=== PATIENT | female | born 1950 | race Hispanic/Latino ===

== ENCOUNTER 2017-06-07 01:18 | Emergency (ER) | payer MEDICARE, MEDICAID ==
[2017-06-07 01:59] LABS: #Basophils 0.1 thou/uL (0.0-0.2); #Eosinphils 0.1 thou/uL (0.0-0.7); #Monocytes 0.5 thou/uL (0.11-0.59); #Neutrophils 5.7 thou/uL (1.40-6.50); %Eosinophils 1.5 % (0.0-10.0); %Lymphocytes 23.7 % (21.0-51.0); %Monocytes 5.8 % (0.0-10.0); Hemoglobin 12.4 g/dL (12.0-16.0); Mean Corpuscular HGB CONC 34.2 g/dL (32.0-36.0); Mean Corpuscular Volume 84.9 fl (81.0-99.0); Mean Platelet Volume 7.6 fL (7.4-10.4); Platelet Count 189 thou/uL (130-400); Red Blood Cell (RBC) Count 4.29 mill/uL (4.20-5.40); White Blood Cell (WBC) Count 8.4 thou/uL (4.8-10.8)
[2017-06-07 02:08] LABS: pH (venous) 7.35 (7.34-7.37)
[2017-06-07 02:09] LABS: Base Excess 1.3 mEq/L (-2 - +2); Bilirubin Negative (Negative); Blood, Urine Trace (Negative); Clarity Slightly Cloudy (Clear); Glucose, Urine (Dipstick) Negative (Negative); Hemoglobin (Hb) 12.4 g/dL (11.7-16.1); Leukocyte Small (Negative); Nitrite Negative (Negative); Protein, Urine (Dipstick) Negative (Neg-Trace); Specific Gravity, Urine 1.015 (1.005-1.030); Urobilinogen 0.2 mg/dL (0.2-1.0); pH, Urine 5.5 (5.0-9.0)
[2017-06-07 02:12] LABS: BHCG - Serum Negative (NEGATIVE); Pregs Control Background? CLEAR/WHITE (CLR/WHITE); Pregs Control Bar Appear? YES (CONTROL BAR)
[2017-06-07 02:16] LABS: Bacteria/HPF 1+ HPF (None Seen); Squamous Epithelial 0-3 HPF (0-3)
[2017-06-07 02:20] LABS: ALT (SGPT) 17 U/L (8-55); AST (SGOT) 19 U/L (5-34); Albumin 3.9 g/dL (3.4-4.8); Alkaline Phosphatase 74 U/L (40-150); Anion Gap 12 mmol/L (10-20); BUN (Urea Nitrogen) 19 mg/dL (9.8-20.1); Bilirubin, Total 0.4 mg/dL (0.2-1.2); Calc. Creatinine Clearance 0 mL/min (70-130); Carbon Dioxide 27 mmol/L (23-31); Chloride 101 mmol/L (98-107); Estimated GFR-MDRD 70; Globulin 4.2 g/dL (2.4-3.5); Glucose 232 mg/dL (80-115); Lipase 10 U/L (8-78); Potassium 4.1 mmol/L (3.5-5.1); Protein, Total 8.1 g/dL (6.0-8.3); Sodium 136 mmol/L (136-145)
[2017-06-07 02:21] LABS: CKMB 1.1 ng/mL (0-6.6); Troponin I Less than 0.010 ng/mL (< 0.028)
[2017-06-07] MEDS ORDERED: Ondansetron ODT 4 MG TAB ONE (03:34)
--- NOTE | 2017-06-07 08:15 | CT ---
PRELIMINARY REPORT/[facility]/EMERGENCY AFTER HOURS PROCEDURE: EXAM: CT Abdomen and Pelvis With Intravenous Contrast CLINICAL HISTORY: 66 years old, female; Pain; Abdominal pain; Generalized; Patient HX: Pt presents to the er for abdom inal pain and vomiting; Started sunday. ; Additional info: Iv contrast only per er md. TECHNIQUE: Axial computed tomography images of the abdomen and pelvis with intravenous contrast. All CT scans a t this facility use one or more dose reduction techniques, viz.: automated exposure control; ma/kV a djustment per patient size (including targeted exams where dose is matched to indication; i.e. head) ; or iterative reconstruction technique. Coronal reformatted images were created and reviewed. CONTRAST: 100 mL of ISOVUE 370 administered intravenously. EXAM DATE/TIME: Exam ordered 06/07/2017 2:27 AM COMPARISON: No relevant prior studies available. FINDINGS: Lower thorax: No acute findings. ABDOMEN: Liver: Hepatic steatosis. Gallbladder and bile ducts: Prior cholecystectomy. No ductal dilation. Pancreas: Unremarkable. No mass. No ductal dilation. Spleen: Unremarkable. No splenomegaly. Adrenals: Unremarkable. No mass. Kidneys and ureters: Unremarkable. No solid mass. No hydronephrosis. Stomach and bowel: Unremarkable. No obstruction. No mucosal thickening. Appendix: Normal appendix. PELVIS: Bladder: 15 cm complex pelvic mass superior to the urinary bladder and essentially contiguous with t he vaginal cuff, compatible with either primary ovarian or primary uterine malignancy. Reproductive: See above. ABDOMEN and PELVIS: Intraperitoneal space: Unremarkable. No free air. No significant fluid collection. Bones/joints: Numerous tiny sclerotic foci in the bones are likely bone islands. Metastases unlikely but not excluded. No acute fracture. No dislocation. Soft tissues: Unremarkable. Vasculature: Unremarkable. No abdominal aortic aneurysm. Lymph nodes: Retroperitoneal lymphadenopathy measuring up to 1.5 cm in short axis should be consider ed metastatic until proven otherwise. IMPRESSION: 1. 15 cm complex pelvic mass superior to the urinary bladder and essentially contiguous with the vag inal cuff, compatible with either primary ovarian or primary uterine malignancy. 2. Retroperitoneal lymphadenopathy measuring up to 1.5 cm in short axis should be considered metasta tic until proven otherwise. Thank you for allowing us to participate in the care of your patient. Dictated and Authenticated by: Rhett Vasquez MD 06/07/2017 2:57 AM Central Time ([place] \T\ [place]) FINAL REPORT EXAM: ABDOMEN CT WITH CONTRAST PELVIC CT WITH CONTRAST: HISTORY: Abdominal pain. Vomiting. COMPARISON: None. TECHNIQUE: An ad and pelvic CT are performed with IV contrast. Enteric contrast was not administered. Coronal reformatted images are submitted for interpretation. FINDINGS: This report is in agreement with the preliminary report by [facility]. There is evidence of a pelvic mass, with evidence for a primary ovarian or uterine malignancy. [facility] consultation is recommended. There is evidence of retroperitoneal lymphadenopathy, as described in the preliminary report by [facility]. Metastases should be considered until proven otherwise. POS: [facility]
== END 2017-06-07 03:36 | disposition home or self-care (01) ==
LOC: BURERS 01:18
DX: C76.3 Malignant neoplasm of pelvis (principal); E11.9 Type 2 diabetes mellitus without complications; E78.5 Hyperlipidemia, unspecified; Z87.891 Personal history of nicotine dependence; Z79.899 Other long term (current) drug therapy; Z79.84 Long term (current) use of oral hypoglycemic drugs
CPT/HCPCS: 36416; 74177; 80053; 81003; 81015; 82553; 82805; 83605; 83690; 84484; 84703; 85025; Q0162

== ENCOUNTER 2017-07-05 17:53 | Emergency (ER) | payer MEDICARE, MEDICAID ==
[2017-07-05 18:34] LABS: Bilirubin Negative (Negative); Blood, Urine Trace (Negative); Clarity Clear (Clear); Glucose, Urine (Dipstick) 100 mg/dL (Negative); Leukocyte Large (Negative); Nitrite Negative (Negative); Protein, Urine (Dipstick) Negative (Neg-Trace); Urobilinogen 0.2 mg/dL (0.2-1.0); pH, Urine 6.5 (5.0-9.0)
[2017-07-05] MEDS ORDERED: Doxycycline Hyclate 100 MG TAB ONE (18:38)
[2017-07-05 18:42] LABS: Bacteria/HPF 1+ HPF (None Seen); Crystals/HPF None Seen HPF (Negative); Hyaline Casts/LPF NONE SEEN LPF (0-3 Hyaline); Other Casts/LPF None Seen LPF (0-3 Hyaline); Oval Fat Bodies/HPF None Seen HPF (None Seen); RBC/HPF 0-3 HPF (0-3); Renal Epithelial None Seen HPF (0-3); Sperm/HPF None Seen HPF (None Seen); Squamous Epithelial None Seen HPF (0-3); Transitional Epithelial NONE SEEN HPF (0-3); Trichomonas/HPF None Seen HPF (None Seen); WBC/HPF 0-3 HPF (0-3); Yeast-All Forms None Seen HPF (None Seen)
== END 2017-07-05 19:46 | disposition home or self-care (01) ==
LOC: BURERS 17:53
DX: T81.4XXA Infection following a procedure, initial encounter (principal); N99.89 Other postprocedural complications and disorders of genitourinary system; E11.9 Type 2 diabetes mellitus without complications; E78.5 Hyperlipidemia, unspecified; Z87.891 Personal history of nicotine dependence; Z79.84 Long term (current) use of oral hypoglycemic drugs; Z79.899 Other long term (current) drug therapy
CPT/HCPCS: 81003; 81015; 99283

== ENCOUNTER 2017-07-15 21:19 | Emergency (ER) | payer MEDICARE, MEDICAID ==
[2017-07-15] MEDS ORDERED: Ondansetron HCl/PF 4 MG/2 ML Vial ONE (21:54)
[2017-07-15 21:59] LABS: #Basophils 0.1 thou/uL (0.0-0.2); #Eosinphils 0.2 thou/uL (0.0-0.7); #Lymphocytes 2.2 thou/uL (1.20-3.40); #Monocytes 0.9 thou/uL (0.11-0.59); #Neutrophils 13.6 thou/uL (1.40-6.50); %Basophils 0.7 % (0.0-1.0); %Eosinophils 1.4 % (0.0-10.0); %Lymphocytes 13.1 % (21.0-51.0); %Monocytes 5.1 % (0.0-10.0); %Neutrophils 79.7 % (42.0-75.0); Hemoglobin 11.2 g/dL (12.0-16.0); Mean Corpuscular HGB CONC 32.7 g/dL (32.0-36.0); Mean Corpuscular Hemoglobin 28.5 pg (27.0-31.0); Mean Corpuscular Volume 87.2 fl (81.0-99.0); Mean Platelet Volume 6.4 fL (7.4-10.4); Platelet Count 467 thou/uL (130-400); RBC Distribution Width 13.3 % (11.5-14.5); Red Blood Cell (RBC) Count 3.92 mill/uL (4.20-5.40); White Blood Cell (WBC) Count 17.1 thou/uL (4.8-10.8)
[2017-07-15 22:12] LABS: ALT (SGPT) 19 U/L (8-55); AST (SGOT) 18 U/L (5-34); Albumin 3.9 g/dL (3.4-4.8); Alkaline Phosphatase 80 U/L (40-150); Anion Gap 18 mmol/L (10-20); BUN (Urea Nitrogen) 25 mg/dL (9.8-20.1); Bilirubin, Total 0.2 mg/dL (0.2-1.2); Calc. Creatinine Clearance 0 mL/min (70-130); Calcium 9.6 mg/dL (7.8-10.44); Carbon Dioxide 25 mmol/L (23-31); Chloride 100 mmol/L (98-107); Estimated GFR-MDRD 49; Globulin 4.3 g/dL (2.4-3.5); Glucose 178 mg/dL (80-115); Lipase 25 U/L (8-78); Potassium 4.3 mmol/L (3.5-5.1); Protein, Total 8.2 g/dL (6.0-8.3); Sodium 139 mmol/L (136-145)
[2017-07-16 00:12] LABS: Bilirubin Negative (Negative); Blood, Urine Negative (Negative); Clarity Clear (Clear); Glucose, Urine (Dipstick) Negative (Negative); Leukocyte Trace (Negative); Nitrite Negative (Negative); Protein, Urine (Dipstick) Negative (Neg-Trace); Urobilinogen 0.2 mg/dL (0.2-1.0)
[2017-07-16 00:19] LABS: Bacteria/HPF Rare-Few HPF (None Seen); RBC/HPF 0-3 HPF (0-3); Squamous Epithelial 0-3 HPF (0-3)
--- NOTE | 2017-07-16 14:52 | CT ---
PRELIMINARY REPORT/[facility]/EMERGENCY AFTER HOURS PROCEDURE: EXAM: CT Abdomen and Pelvis With Intravenous Contrast CLINICAL HISTORY: 66 years old, female; Signs and symptoms; Nausea and other: Diarrhea; Prior surgery; Surgery date: < 1 month; Surgery type: Hysterectomy; Patient HX: Pt presents to the er for diarrhea; Reports diarrhe a and vomiting that started today. Reports complete hysterectomy on the 25 of june. TECHNIQUE: Axial computed tomography images of the abdomen and pelvis with intravenous contrast. All CT scans a t this facility use one or more dose reduction techniques, viz.: automated exposure control; ma/kV a djustment per patient size (including targeted exams where dose is matched to indication; i.e. head); or iterative reconstruction technique. Coronal reformatted images were created and reviewed. CONTRAST: 100 mL of ISOVUE 370 administered intravenously. COMPARISON: CT Abdomen Pelvis W Con 06/07/2017 2:27:48 AM FINDINGS: Lower thorax: No acute findings. ABDOMEN: Liver: Normal. Gallbladder and bile ducts: Gallbladder surgically absent. Pancreas: Normal. Spleen: Normal. Adrenals: Normal. Kidneys and ureters: Normal. Stomach and bowel: Normal. Appendix: The appendix is normal. PELVIS: Bladder: Normal. Reproductive: Uterus is surgically absent. ABDOMEN and PELVIS: Intraperitoneal space: Normal. No free air. No significant fluid collection. Bones/joints: Multiple sclerotic foci throughout the visualized axial and appendicular skeleton, sim ilar to previous study, possibly bone island versus metastatic disease. Degenerative changes of the hips and sacral iliac joints. Multilevel lumbar spine degenerative changes. No acute fracture. No di slocation. Soft tissues: Small amount of gas and fluid within the ventral abdominal wall, likely secondary to r ecent surgery. No abscess. Vasculature: Minimal atherosclerotic disease of the abdominal aorta. No abdominal aortic aneurysm. Lymph nodes: Several small lymph nodes in the retroperitoneum, likely reactive, but nonspecific, unc hanged. IMPRESSION: 1. No acute abdominal or pelvic abnormality. 2. Multiple sclerotic foci throughout the visualized axial and appendicular skeleton, similar to pre vious study, possibly bone island versus metastatic disease. 3. Incidental/non-acute findings are described above. Thank you for allowing us to participate in the care of your patient. Dictated and Authenticated by: Juanito Perez MD 07/15/2017 11:46 PM Central Time ([place] \T\ [place]) FINAL REPORT CT ABDOMEN AND PELVIS WITH CONTRAST 07/15/2017 Comparison is made with an 06/07/2017 study. She has had a hysterectomy in the interim. Axial slice s were acquired after giving IV contrast. Coronal reconstructions were then done. The liver, spleen, pancreas, adrenal glands, kidneys, and abdominal aorta showed no acute changes. There has been a prior cholecystectomy. No free air or free fluid was seen in the abdomen. The appendix appears normal. There is no partic ular bowel wall thickening. Some streaking is seen along the incision site from the hysterectomy. There were no abnormal fluid collections here, though there was a little bit of air trapped in the i ncision. The CT of the pelvis showed no pelvic masses, free fluid, or other acute changes. There were a few small retroperitoneal nodes as was noted before. Additionally, there are multiple sclerotic areas s een throughout the spine and a few places in the pelvis. While the appearance is more like small [place], metastatic disease is not specifically ruled out. These were noted on the prior CT. IMPRESSION: 1. No acute intraabdominal findings to explain the patient's symptoms. 2. A small amount of gas or air is seen in the incision site from the hysterectomy. This may just b e residual rather than infection. 3. Sclerotic foci seen in the bones as on the prior scan. See comments above. Report in agreement with preliminary reading by Marian[facility]. POS: HOME
== END 2017-07-16 00:40 | disposition home or self-care (01) ==
LOC: BURERS 21:19
DX: K52.9 Noninfective gastroenteritis and colitis, unspecified (principal); E11.9 Type 2 diabetes mellitus without complications; E78.5 Hyperlipidemia, unspecified; Z87.891 Personal history of nicotine dependence; Z79.84 Long term (current) use of oral hypoglycemic drugs; Z79.899 Other long term (current) drug therapy
CPT/HCPCS: 36416; 74177; 80053; 81003; 81015; 83605; 83690; 85025; 93005; 96361; 96374; J2405

== ENCOUNTER 2018-01-12 03:10 | Emergency (ER) | payer MEDICARE, MEDICAID ==
[2018-01-12] MEDS ORDERED: AMOXicillin 250 MG CAP ONE (03:44)
[2018-01-12] MEDS ORDERED: Ciprofloxacin 500 MG TAB ONE (03:48)
== END 2018-01-12 04:14 | disposition home or self-care (01) ==
LOC: BURERS 03:10
DX: J06.9 Acute upper respiratory infection, unspecified (principal); E11.9 Type 2 diabetes mellitus without complications; E78.5 Hyperlipidemia, unspecified; Z87.891 Personal history of nicotine dependence; Z79.899 Other long term (current) drug therapy; Z79.84 Long term (current) use of oral hypoglycemic drugs
CPT/HCPCS: 99283

== ENCOUNTER 2018-05-18 02:56 | Emergency (ER) | payer MEDICARE, MEDICAID ==
[2018-05-18 03:38] LABS: Hemoglobin 10.1 g/dL (12.0-16.0); Mean Corpuscular HGB CONC 34.4 g/dL (32.0-36.0); Mean Corpuscular Hemoglobin 29.6 pg (27.0-31.0); Mean Corpuscular Volume 85.9 fL (78.0-98.0); Mean Platelet Volume 6.6 fL (7.4-10.4); Platelet Count 133 thou/uL (130-400); RBC Distribution Width 15.3 % (11.5-14.5); Red Blood Cell (RBC) Count 3.41 mill/uL (4.20-5.40); White Blood Cell (WBC) Count 26.3 thou/uL (4.8-10.8)
[2018-05-18 03:49] LABS: ALT (SGPT) 18 U/L (8-55); AST (SGOT) 18 U/L (5-34); Albumin 3.6 g/dL (3.4-4.8); Alkaline Phosphatase 99 U/L (40-150); Anion Gap 21 mmol/L (10-20); BUN (Urea Nitrogen) 11 mg/dL (9.8-20.1); Bilirubin, Total 0.4 mg/dL (0.2-1.2); Calc. Creatinine Clearance 0 mL/min (70-130); Calcium 7.9 mg/dL (7.8-10.44); Carbon Dioxide 16 mmol/L (23-31); Chloride 99 mmol/L (98-107); Estimated GFR-MDRD 73; Globulin 3.6 g/dL (2.4-3.5); Glucose 388 mg/dL (80-115); Potassium 3.1 mmol/L (3.5-5.1); Protein, Total 7.2 g/dL (6.0-8.3); Sodium 133 mmol/L (136-145)
[2018-05-18 03:50] LABS: CKMB 0.7 ng/mL (0-6.6); Troponin I Less than 0.010 ng/mL (< 0.028)
[2018-05-18 03:54] LABS: Anisocytosis SLIGHT = 6-15 cells (100X) (0-5/hpf); Band 18 % (5-11); Lymphocytes 13 % (21-51); MDiff Complete? YES; Monocytes 2 % (0-10); Neutrophil 67 % (42-75); PLT Morphology Comment Appears Decreased
[2018-05-18] MEDS ORDERED: Benzocaine 20% Spray 60 ML CAN ONE (04:02)
[2018-05-18 04:24] LABS: pH (venous) 7.346 (7.32-7.43)
[2018-05-18 04:25] LABS: Base Excess -4.8 mEq/L (-2.0 to +3.0); Hemoglobin (Hb) 10.9 g/dL (11.7-16.1)
[2018-05-18 04:40] LABS: Clarity Clear (Clear); pH, Urine 5.5 (5.0-9.0)
[2018-05-18 04:41] LABS: Bilirubin Negative (Negative); Blood, Urine Negative (Negative); Glucose, Urine (Dipstick) 500 mg/dL (Negative); Leukocyte Negative (Negative); Nitrite Negative (Negative); Protein, Urine (Dipstick) 30 mg/dL (Neg-Trace); Urobilinogen 0.2 mg/dL (0.2-1.0)
[2018-05-18 04:51] LABS: Bacteria/HPF Rare-Few HPF (None Seen); RBC/HPF 0-3 HPF (0-3); Squamous Epithelial 0-3 HPF (0-3)
[2018-05-18] MEDS ORDERED: Sodium Chloride 0.9% 0 ML ONE (05:46)
--- NOTE | 2018-05-18 10:51 | RAD ---
CHEST 2 VIEWS: DATE: 05/18/18. FINDINGS: Comparison is made with the prior study dated 11/22/14. The patient has the right subclavian catheter in place whose tip is in the vicinity of the distal sup erior vena cava/right atrial junction. The heart is normal in size. There is no vascular congestion or pleural effusion. The right hemidiaphragm is elevated, but this is chronic in this patient. T he lung markings in the right lung and the right hilar area seem slightly more prominent than the 201 5 study. I cannot exclude an early infection here. Alternatively, part of this could be due to atel ectasis, but given the patient being on chemo, I would resume infection until proven otherwise. IMPRESSION: 1. Mild increase in lung markings and hilar prominence on the right side since 2014. Cannot rule ou t infection. Recommend followup chest x-ray after treatment. 2. Elevated right hemidiaphragm, chronic and not new. CODE T POS: HOME
== END 2018-05-18 05:20 | disposition left against medical advice (07) ==
LOC: BURERS 02:56
DX: J18.9 Pneumonia, unspecified organism (principal); E87.2 Acidosis; E11.9 Type 2 diabetes mellitus without complications; E78.5 Hyperlipidemia, unspecified; Z87.891 Personal history of nicotine dependence; Z79.899 Other long term (current) drug therapy; Z79.84 Long term (current) use of oral hypoglycemic drugs
CPT/HCPCS: 36415; 71046; 80053; 81003; 81015; 82553; 82805; 83605; 83880; 84484; 85025; 87040; 87086; 93005; 96360; J7050

== ENCOUNTER 2018-06-28 00:50 | Emergency (ER) | payer MEDICARE, MEDICAID ==
[2018-06-28] MEDS ORDERED: Albuterol Sulfate 1.25 MG/3 ML NEB ONE (01:59)
--- NOTE | 2018-06-28 06:59 | RAD ---
PORTABLE CHEST: Date: 06/28/18 Comparison made with the 05/18/18 study. FINDINGS: Mild cardiomegaly is no different than before. There is no congestive change or pleural effusion. Nannette vation of the right hemidiaphragm is present, but no different than before. No lobar infiltrates seen . A little crowding of the lung markings in the right base medially is probably some compressive atel ectasis due to the elevation of the right hemidiaphragm. A right central venous line remains in place . IMPRESSION: No significant change since the prior study. POS: HOME
== END 2018-06-28 02:20 | disposition home or self-care (01) ==
LOC: BURERS 00:50
DX: J40 Bronchitis, not specified as acute or chronic (principal); E11.9 Type 2 diabetes mellitus without complications; E78.5 Hyperlipidemia, unspecified; Z87.891 Personal history of nicotine dependence; Z79.899 Other long term (current) drug therapy; Z79.84 Long term (current) use of oral hypoglycemic drugs
CPT/HCPCS: 71045

== ENCOUNTER 2018-06-30 22:09 | Emergency (ER) | payer MEDICARE, MEDICAID ==
[2018-06-30 22:50] LABS: Clarity Hazy (Clear)
[2018-06-30 22:51] LABS: Bilirubin Negative (Negative); Blood, Urine Negative (Negative); Glucose, Urine (Dipstick) >=1000 mg/dL (Negative); Leukocyte Trace (Negative); Nitrite Negative (Negative); Protein, Urine (Dipstick) Negative (Neg-Trace); Specific Gravity, Urine 1.015 (1.005-1.030); Urobilinogen 0.2 mg/dL (0.2-1.0); pH, Urine 5.5 (5.0-9.0)
[2018-06-30 22:51] LABS: #Basophils 0.1 thou/uL (0.0-0.2); #Eosinphils 0.2 thou/uL (0.0-0.7); #Lymphocytes 2.4 thou/uL (1.20-3.40); #Monocytes 0.8 thou/uL (0.11-0.59); #Neutrophils 4.5 thou/uL (1.40-6.50); %Basophils 1.1 % (0.0-1.0); %Lymphocytes 30.4 % (21.0-51.0); %Monocytes 9.4 % (0.0-10.0); %Neutrophils 57.1 % (42.0-75.0); Hemoglobin 10.8 g/dL (12.0-16.0); Mean Corpuscular HGB CONC 32.3 g/dL (32.0-36.0); Mean Corpuscular Hemoglobin 30.1 pg (27.0-31.0); Mean Platelet Volume 9.3 fL (7.4-10.4); Platelet Count 206 thou/uL (130-400); RBC Distribution Width 16.5 % (11.5-14.5); Red Blood Cell (RBC) Count 3.61 mill/uL (4.20-5.40)
[2018-06-30 22:57] LABS: Bacteria/HPF Rare-Few HPF (None Seen); RBC/HPF 0-3 HPF (0-3); Squamous Epithelial 0-3 HPF (0-3); Transitional Epithelial 0-3 HPF (0-3)
[2018-06-30 23:03] LABS: ALT (SGPT) 17 U/L (8-55); AST (SGOT) 16 U/L (5-34); Albumin 4.3 g/dL (3.4-4.8); Alkaline Phosphatase 92 U/L (40-150); Anion Gap 16 mmol/L (10-20); BUN (Urea Nitrogen) 39 mg/dL (9.8-20.1); Bilirubin, Total Less than 0.2 mg/dL (0.2-1.2); Calc. Creatinine Clearance 0 mL/min (70-130); Calcium 11.1 mg/dL (7.8-10.44); Carbon Dioxide 24 mmol/L (23-31); Chloride 99 mmol/L (98-107); Estimated GFR-MDRD 50; Globulin 4.4 g/dL (2.4-3.5); Glucose 400 mg/dL (80-115); Potassium 4.3 mmol/L (3.5-5.1); Protein, Total 8.7 g/dL (6.0-8.3); Sodium 135 mmol/L (136-145)
[2018-06-30] MEDS ORDERED: cefTRIAXone\\ROCEPHIN 2 GM VIAL ONE (23:04)
--- NOTE | 2018-07-01 10:13 | RAD ---
PORTABLE CHEST: DATE: 06/30/18. FINDINGS: An AP portable film at 2225 is compared with a 05/18/18 study. The heart is unchanged in size. There is no congestion, pleural effusion, or focal pulmonary infiltr ate. There was no sign of pneumonia. Elevation of the right hemidiaphragm is chronic in this patien t. A right central line remains in place. IMPRESSION: No acute finding. POS: HOME
== END 2018-07-01 00:02 | disposition home or self-care (01) ==
LOC: EDBD → BURERS 22:09
DX: J06.9 Acute upper respiratory infection, unspecified (principal); D64.9 Anemia, unspecified; C56.9 Malignant neoplasm of unspecified ovary; N39.0 Urinary tract infection, site not specified; E11.65 Type 2 diabetes mellitus with hyperglycemia; E78.5 Hyperlipidemia, unspecified; Z79.899 Other long term (current) drug therapy; Z79.84 Long term (current) use of oral hypoglycemic drugs
CPT/HCPCS: 71045; 80053; 81003; 81015; 83605; 85025; 87040; 87086; 96365; J0696

== ENCOUNTER 2018-07-03 20:55 | Emergency (ER) | payer MEDICARE, MEDICAID | END 2018-07-03 21:48 | disposition home or self-care (01) | LOC: BURERS 20:55 | DX: J20.9 Acute bronchitis, unspecified (principal); E11.9 Type 2 diabetes mellitus without complications; E78.5 Hyperlipidemia, unspecified; Z87.891 Personal history of nicotine dependence; Z85.43 Personal history of malignant neoplasm of ovary; Z85.830 Personal history of malignant neoplasm of bone; Z79.84 Long term (current) use of oral hypoglycemic drugs; Z79.899 Other long term (current) drug therapy | CPT/HCPCS: 99283 ==

== ENCOUNTER 2018-07-10 17:58 | Emergency (ER) | payer MEDICARE, MEDICAID ==
[2018-07-10 18:34] LABS: #Basophils 0.1 thou/uL (0.0-0.2); #Eosinphils 0.1 thou/uL (0.0-0.7); #Monocytes 0.6 thou/uL (0.11-0.59); #Neutrophils 4.9 thou/uL (1.40-6.50); %Basophils 0.9 % (0.0-1.0); %Eosinophils 1.9 % (0.0-10.0); %Lymphocytes 26.4 % (21.0-51.0); %Monocytes 7.1 % (0.0-10.0); %Neutrophils 63.6 % (42.0-75.0); Hemoglobin 10.8 g/dL (12.0-16.0); Mean Corpuscular HGB CONC 32.4 g/dL (32.0-36.0); Mean Corpuscular Hemoglobin 30.1 pg (27.0-31.0); Mean Corpuscular Volume 92.8 fL (78.0-98.0); Mean Platelet Volume 6.6 fL (7.4-10.4); Platelet Count 196 thou/uL (130-400); Red Blood Cell (RBC) Count 3.57 mill/uL (4.20-5.40); White Blood Cell (WBC) Count 7.7 thou/uL (4.8-10.8)
[2018-07-10 18:52] LABS: ALT (SGPT) 16 U/L (8-55); AST (SGOT) 14 U/L (5-34); Albumin 4.2 g/dL (3.4-4.8); Alkaline Phosphatase 84 U/L (40-150); Anion Gap 16 mmol/L (10-20); BUN (Urea Nitrogen) 30 mg/dL (9.8-20.1); Bilirubin, Total 0.2 mg/dL (0.2-1.2); Calc. Creatinine Clearance 0 mL/min (70-130); Calcium 10.7 mg/dL (7.8-10.44); Carbon Dioxide 26 mmol/L (23-31); Chloride 98 mmol/L (98-107); Estimated GFR-MDRD 40; Globulin 4.4 g/dL (2.4-3.5); Glucose 417 mg/dL (80-115); Potassium 4.2 mmol/L (3.5-5.1); Protein, Total 8.6 g/dL (6.0-8.3); Sodium 136 mmol/L (136-145)
[2018-07-10 18:54] LABS: CKMB 1.3 ng/mL (0-6.6); Troponin I Less than 0.010 ng/mL (< 0.028)
[2018-07-10 19:17] LABS: Clarity Clear (Clear)
[2018-07-10 19:18] LABS: Bilirubin Negative (Negative); Blood, Urine Negative (Negative); Glucose, Urine (Dipstick) 500 mg/dL (Negative); Leukocyte Trace (Negative); Nitrite Negative (Negative); Protein, Urine (Dipstick) Negative (Neg-Trace); Specific Gravity, Urine 1.006 (1.005-1.030); Urobilinogen 0.2 mg/dL (0.2-1.0)
[2018-07-10 19:21] LABS: Bacteria/HPF 1+ HPF (None Seen); RBC/HPF 0-3 HPF (0-3); Squamous Epithelial 0-3 HPF (0-3)
[2018-07-10] MEDS ORDERED: Insulin Regular 300 UNITS/3 ML VIAL ONE (19:44)
--- NOTE | 2018-07-10 20:16 | RAD ---
PORTABLE CHEST: 07/10/18 An AP portable film at 1822 is compared with a 06/30/18 study. The heart is unchanged in size. There is no vascular congestion, edema, or pleural effusion. Marked e levation of the right hemidiaphragm is present as before, but seems little different over the interva l. A Mediport type catheter enters on the right side with the tip in the vicinity of the distal super ior vena cava. The lungs are clear. IMPRESSION: No acute thoracic findings. POS: HOME
== END 2018-07-10 21:25 | disposition home or self-care (01) ==
LOC: BURERS 17:58
DX: N39.0 Urinary tract infection, site not specified (principal); R06.00 Dyspnea, unspecified; E11.9 Type 2 diabetes mellitus without complications; E78.5 Hyperlipidemia, unspecified; Z87.891 Personal history of nicotine dependence; Z85.43 Personal history of malignant neoplasm of ovary; Z85.848 Personal history of malignant neoplasm of other parts of nervous tissue
CPT/HCPCS: 36416; 71045; 80053; 81003; 81015; 82553; 83880; 84484; 85025; 87077; 87086; 94760; 96361; 96374; J1815

== ENCOUNTER 2018-07-18 20:12 | Emergency (ER) | payer MEDICARE, MEDICAID ==
[2018-07-18 20:39] LABS: Base Excess-Venous -0.5 mmol/L (0 (+/- 2.5)); Bicarbonate (HCO3v) 24.6 mmol/L (1.0-85.0); CO2 Tension (PvCO2) 41.3 mmHg (41.0-51.0); O2 Tension (PvO2) 53.3 mmHg (35.0-45.0); pH (Venous) 7.383 (7.35-7.45); vO2 Saturation-calc 86.7 % (94-98)
[2018-07-18 20:40] LABS: Calcium, Ionized 1.11 mmol/L (1.12-1.32); Potassium 3.7 mmol/L (3.4-4.7); T. Carbon Dioxide 25.8 mmol/L (1.0-85.0)
[2018-07-18 20:53] LABS: ALT (SGPT) 16 U/L (8-55); AST (SGOT) 17 U/L (5-34); Alkaline Phosphatase 69 U/L (40-150); Anion Gap 16 mmol/L (10-20); BUN (Urea Nitrogen) 11 mg/dL (9.8-20.1); Bilirubin, Total 0.5 mg/dL (0.2-1.2); Calc. Creatinine Clearance 0 mL/min (70-130); Calcium 8.8 mg/dL (7.8-10.44); Carbon Dioxide 23 mmol/L (23-31); Chloride 100 mmol/L (98-107); Estimated GFR-MDRD 70; Globulin 3.6 g/dL (2.4-3.5); Glucose 347 mg/dL (80-115); Potassium 3.9 mmol/L (3.5-5.1); Protein, Total 7.6 g/dL (6.0-8.3); Sodium 135 mmol/L (136-145)
== END 2018-07-18 21:06 | disposition home or self-care (01) ==
LOC: EDBD → BURERS 20:12
DX: E11.65 Type 2 diabetes mellitus with hyperglycemia (principal); E78.5 Hyperlipidemia, unspecified; Z87.891 Personal history of nicotine dependence; Z79.899 Other long term (current) drug therapy; Z79.84 Long term (current) use of oral hypoglycemic drugs
CPT/HCPCS: 36416; 80053; 82330; 82803; 85014; 99285

== ENCOUNTER 2018-07-19 18:28 | Emergency (ER) | payer MEDICARE, MEDICAID ==
[2018-07-19 19:58] LABS: Anion Gap 14 mmol/L (10-20)
[2018-07-19 19:59] LABS: Band 12 % (5-11); Hemoglobin 10.5 g/dL (12.0-16.0); Lymphocytes 8 % (21-51); MDiff Complete? YES; Mean Corpuscular Hemoglobin 29.8 pg (27.0-31.0); Mean Corpuscular Volume 93.2 fL (78.0-98.0); Mean Platelet Volume 10.2 fL (7.4-10.4); Monocytes 1 % (0-10); Neutrophil 78 % (42-75); Platelet Count 118 thou/uL (130-400); RBC Distribution Width 15.5 % (11.5-14.5); Red Blood Cell (RBC) Count 3.53 mill/uL (4.20-5.40); White Blood Cell (WBC) Count 23.9 thou/uL (4.8-10.8)
[2018-07-19 20:01] LABS: ALT (SGPT) 16 U/L (8-55); AST (SGOT) 18 U/L (5-34); Albumin 4.1 g/dL (3.4-4.8); Alkaline Phosphatase 86 U/L (40-150); BUN (Urea Nitrogen) 9 mg/dL (9.8-20.1); Bilirubin, Total Less than 0.2 mg/dL (0.2-1.2); Calc. Creatinine Clearance 0 mL/min (70-130); Calcium 8.9 mg/dL (7.8-10.44); Carbon Dioxide 24 mmol/L (23-31); Chloride 102 mmol/L (98-107); Estimated GFR-MDRD 73; Globulin 4.1 g/dL (2.4-3.5); Glucose 267 mg/dL (80-115); Potassium 3.6 mmol/L (3.5-5.1); Protein, Total 8.2 g/dL (6.0-8.3); Sodium 136 mmol/L (136-145)
[2018-07-19 20:02] LABS: CKMB 0.6 ng/mL (0-6.6); Troponin I Less than 0.010 ng/mL (< 0.028)
[2018-07-19 20:30] LABS: Clarity SLIGHTLY (Clear); Leukocyte Small (Negative); Nitrite Negative (Negative); Protein, Urine (Dipstick) 30 mg/dL (Neg-Trace); pH, Urine 6.5 (5.0-9.0)
[2018-07-19 20:31] LABS: Bilirubin Negative (Negative); Blood, Urine Negative (Negative); Glucose, Urine (Dipstick) 500 mg/dL (Negative); Urobilinogen 0.2 mg/dL (0.2-1.0)
[2018-07-19 20:35] LABS: Bacteria/HPF Rare-Few HPF (None Seen); Crystals/HPF None Seen HPF (Negative); Hyaline Casts/LPF NONE SEEN LPF (0-3 Hyaline); Other Casts/LPF None Seen LPF (0-3 Hyaline); Oval Fat Bodies/HPF None Seen HPF (None Seen); RBC/HPF None Seen HPF (0-3); Renal Epithelial None Seen HPF (0-3); Sperm/HPF None Seen HPF (None Seen); Squamous Epithelial None Seen HPF (0-3); Transitional Epithelial NONE SEEN HPF (0-3); Trichomonas/HPF None Seen HPF (None Seen); WBC/HPF 0-3 HPF (0-3); Yeast-All Forms None Seen HPF (None Seen)
[2018-07-19] MEDS ORDERED: Lorazepam 0.5 MG TAB ONE ×2 (20:44→20:45)
--- NOTE | 2018-07-19 21:04 | RAD ---
PORTABLE CHEST: 07/19/18 HISTORY: Dyspnea. COMPARISON: 07/10/18 study. Right sided Mediport type catheter is again noted. Heart size is within normal limits. Elevation of t he right hemidiaphragm is stable. No infiltrative process. No signs of failure. IMPRESSION: No active intrathoracic disease. POS: [facility]
== END 2018-07-19 21:49 | disposition short-term general hospital (02) ==
LOC: BURERS 18:28 → EDBD 18:28 → BURERS 21:49
DX: A41.9 Sepsis, unspecified organism (principal); J02.9 Acute pharyngitis, unspecified; E11.9 Type 2 diabetes mellitus without complications; E78.5 Hyperlipidemia, unspecified; Z87.891 Personal history of nicotine dependence; Z79.899 Other long term (current) drug therapy; Z79.84 Long term (current) use of oral hypoglycemic drugs
CPT/HCPCS: 71045; 80053; 81003; 81015; 82553; 83605; 83880; 84484; 85025; 87040; 87086; 94640; 94760; 96365; 96375; J1956; J3370; J7620

== ENCOUNTER 2018-07-22 14:48 | Emergency (ER) | payer MEDICARE, MEDICAID ==
[2018-07-22] MEDS ORDERED: Bisacodyl 10 MG SUPP ONE (16:16)
[2018-07-22] MEDS ORDERED: Magnesium Citrate 300 ML BOT ONE (16:16)
== END 2018-07-22 16:58 | disposition home or self-care (01) ==
LOC: BURERS 14:48
DX: K59.00 Constipation, unspecified (principal); E11.9 Type 2 diabetes mellitus without complications; E78.5 Hyperlipidemia, unspecified; Z79.899 Other long term (current) drug therapy; Z79.84 Long term (current) use of oral hypoglycemic drugs
CPT/HCPCS: 99283